=== PATIENT | male | born 1960 | race Caucasian/White ===

== ENCOUNTER 2018-03-24 20:36 | Emergency (ER) | payer SELFPAY ==
[~2018-03-24] VITALS: Ht 177.8 cm; Wt 107.5 kg
[2018-03-24 20:48] VITALS: BP 133/96
[2018-03-24 21:30] LABS: BASOPHILS # (AUTO) 0.07 x10^3/uL (0-0.1); BASOPHILS % (AUTO) 1 % (0-1); EOSINOPHILS # (AUTO) 0.16 x10^3/uL (0-0.4); EOSINOPHILS % (AUTO) 2 % (1-7); LYMPHOCYTES # (AUTO) 3.16 x10^3/uL (1-3.4); LYMPHOCYTES % (AUTO) 36 % (22-44); MD NO; MEAN CORPUSCULAR HEMOGLOBIN 30.7 pg (27.5-34.5); MEAN CORPUSCULAR HGB CONC 34.5 g/dL (33.2-36.2); MEAN CORPUSCULAR VOLUME 89.2 fL (81-97); MONOCYTES # (AUTO) 0.84 x10^3/uL (0.2-0.8); MONOCYTES % (AUTO) 9 % (2-9); NEUTROPHILS # (AUTO) 4.68 x10^3/uL (1.8-6.8); NEUTROPHILS % (AUTO) 53 % (42-75); PLATELET COUNT 248 x10^3/uL (130-400); RED BLOOD COUNT 5.05 x10^6/uL (4.38-5.82); RED CELL DISTRIBUTION WIDTH 13.9 % (9.4-14.8)
[2018-03-24 21:39] LABS: ALANINE AMINOTRANSFERASE 25 U/L (12-78); ALBUMIN 3.7 g/dL (3.4-5.0); ANION GAP 10 mmol/L (5-15); CALCIUM 8.7 mg/dL (8.5-10.1); CHLORIDE 109 mmol/L (98-107); CREATININE 0.96 mg/dL (0.7-1.3)
[2018-03-24 21:43] LABS: ALKALINE PHOSPHATASE 73 U/L (45-117); BILIRUBIN,TOTAL 0.4 mg/dL (0.2-1.0); TOTAL PROTEIN 7.5 g/dL (6.4-8.2); TROPONIN I < 0.015 ng/mL (0.000-0.045)
== END 2018-03-24 22:29 | disposition home or self-care (01) ==
LOC: EDBD 20:36 → ED 22:23
DX: R42 Dizziness and giddiness (principal); J01.00 Acute maxillary sinusitis, unspecified; I10 Essential (primary) hypertension; E78.00 Pure hypercholesterolemia, unspecified; F17.200 Nicotine dependence, unspecified, uncomplicated
CPT/HCPCS: 36415; 71045; 80053; 84484; 85025; 93005; 99285

== ENCOUNTER 2018-10-12 09:28 | Emergency (ER) | payer MEDICAID, OTHER ==
[~2018-10-12] VITALS: Ht 177.8 cm; Wt 107.3 kg
[2018-10-12 09:38] VITALS: BP 122/84
--- NOTE | 2018-10-12 09:44 | NUR ---
Sore throat x 3 days. Painful to swallow, muffled voice, chloraseptic/salt water gargles not helping.
[2018-10-12] MEDS ORDERED: DEXAMETHASONE 4 MG/ML, 1ML ONE (10:23)
[2018-10-12] MEDS ORDERED: DEXAMETHASONE 4 MG/ML, 1ML PO ONE (10:30)
== END 2018-10-12 10:44 | disposition home or self-care (01) ==
LOC: ED 10:35
DX: J02.9 Acute pharyngitis, unspecified (principal); I10 Essential (primary) hypertension; E78.00 Pure hypercholesterolemia, unspecified
CPT/HCPCS: 99283; J1100

== ENCOUNTER 2018-10-14 18:36 | Inpatient (IN) | payer MEDICAID, OTHER ==
[~2018-10-14] VITALS: Ht 177.8 cm; Wt 109.6 kg
[2018-10-14 19:34] LABS: MEAN CORPUSCULAR HEMOGLOBIN 30.1 pg (27.5-34.5); MEAN CORPUSCULAR HGB CONC 33.8 g/dL (33.2-36.2); MEAN CORPUSCULAR VOLUME 89.2 fL (81-97); MEAN PLATELET VOLUME 8.1 fL (7.4-10.4); PLATELET COUNT 289 x10^3/uL (130-400); RED BLOOD COUNT 5.42 x10^6/uL (4.38-5.82); RED CELL DISTRIBUTION WIDTH 13.4 % (9.4-14.8)
[2018-10-14] MEDS ORDERED: BENZOCAINE 20% SPRAY 0.5ML ONE (19:37)
[2018-10-14 19:41] LABS: ANION GAP 6 mmol/L (5-15); CALCIUM 8.5 mg/dL (8.5-10.1); CHLORIDE 108 mmol/L (98-107); CREATININE 0.91 mg/dL (0.7-1.3)
[2018-10-14 19:49] LABS: MD YES
[2018-10-14 19:52] LABS: <PLATELET ESTIMATE> ADEQUATE; <PLT MORPHOLOGY> NORMAL PLT MORPH; <RBC MORPHOLOGY> NORMAL; BAND#(MANUAL) 0.15 x10^3/uL; BANDS%(MANUAL) 1 % (0-7); EOS#(MANUAL) 0.15 x10^3/uL (0.0-0.4); EOS% (MANUAL) 1 % (1-7); LYMPHS% (MANUAL) 20 % (22-44); MONOS#(MANUAL) 1.89 x10^3/uL (0.3-2.7); MONOS% (MANUAL) 13 % (2-9); SEG#(MANUAL) 9.43 x10^3/uL (1.8-6.8); SEGS% (MANUAL) 65 % (42-75)
[2018-10-14] MEDS ORDERED: BENZOCAINE 20% SPRAY 0.5ML TP ONE (20:00)
[2018-10-14] MEDS ORDERED: OMNIPAQUE 350 MG/ML, 100ML BOTTLE ONE (20:06)
--- NOTE | 2018-10-14 21:26 | NUR ---
ENT AT BEDSIDE AT THIS TIME
[2018-10-14] MEDS ORDERED: DEXAMETHASONE 4 MG/ML, 1ML IVPush SCH (22:00)
[2018-10-14] MEDS ORDERED: DEXAMETHASONE 4 MG/ML, 5ML ONE (22:08)
--- NOTE | 2018-10-14 22:12 | NUR ---
WAITING FOR ADMIT BED
[2018-10-14] MEDS ORDERED: RAMI10CA59 PO (22:22)
[2018-10-14] MEDS ORDERED: AMLO5TAB4 PO (22:23)
[2018-10-14] MEDS ORDERED: ATOR40TA78 PO (22:24)
[2018-10-14 22:50] VITALS: BP 115/74
[2018-10-14] MEDS ORDERED: ACETAMINOPHEN 325 MG TABLET PO PRN (23:30)
[2018-10-14] MEDS ORDERED: KETOROLAC 30 MG/1 ML IV PRN (23:30)
[2018-10-14] MEDS ORDERED: ONDANSETRON 2MG/ML, 2ML IVPush PRN (23:30)
[2018-10-14] MEDS ORDERED: ENALAPRILAT 1.25 MG/ML, 2ML IVPush PRN (23:30)
[2018-10-14] MEDS ORDERED: HYDROmorphone 2 MG/ML, 1ML IVPush PRN (23:30)
[2018-10-14] MEDS ORDERED: POLYETHYLENE GLYCOL 17 GM PACKET PO PRN (23:30)
[2018-10-15] MEDS ORDERED: DEXAMETHASONE 10 MG in SODIUM CHLORIDE 0.9% 50 ML IV SCH
[2018-10-15] MEDS: HYDROcodone/APAP 5/325 TABLET PO PRN ×6 (00:01→22:40)
[2018-10-15 01:02] VITALS: BP 110/72
[2018-10-15 05:34] LABS: BASOPHILS % (AUTO) 0 % (0-1); EOSINOPHILS % (AUTO) 0 % (1-7); LYMPHOCYTES # (AUTO) 0.84 x10^3/uL (1-3.4); LYMPHOCYTES % (AUTO) 7 % (22-44); MD NO; MEAN CORPUSCULAR HEMOGLOBIN 29.9 pg (27.5-34.5); MEAN CORPUSCULAR HGB CONC 33.8 g/dL (33.2-36.2); MEAN CORPUSCULAR VOLUME 88.5 fL (81-97); MEAN PLATELET VOLUME 8.6 fL (7.4-10.4); MONOCYTES # (AUTO) 0.62 x10^3/uL (0.2-0.8); MONOCYTES % (AUTO) 5 % (2-9); NEUTROPHILS # (AUTO) 11.17 x10^3/uL (1.8-6.8); NEUTROPHILS % (AUTO) 88 % (42-75); PLATELET COUNT 312 x10^3/uL (130-400); RED BLOOD COUNT 5.15 x10^6/uL (4.38-5.82); RED CELL DISTRIBUTION WIDTH 13.7 % (9.4-14.8)
[2018-10-15 05:43] LABS: ANION GAP 7 mmol/L (5-15); CALCIUM 8.4 mg/dL (8.5-10.1); CHLORIDE 107 mmol/L (98-107); CREATININE 0.93 mg/dL (0.7-1.3)
[2018-10-15] MEDS: DEXAMETHASONE 4 MG/ML, 1ML IVPush SCH ×3 (06:22→22:40)
[2018-10-15 07:28] VITALS: BP 136/81
[2018-10-15] MEDS: AMLODIPINE 5 MG TABLET PO SCH (08:43)
[2018-10-15] MEDS: SENNA/DOCUSATE TABLET PO SCH (08:43)
[2018-10-15] MEDS: CLINDAMYCIN PMX 600MG/50ML 50 ML IV SCH ×2 (08:51)
[2018-10-15] MEDS: RAMIPRIL 5 MG CAP PO SCH (08:58)
[2018-10-15] MEDS: LACTATED RINGERS 1,000 ML IV SCH ×2 (12:59)
[2018-10-15] MEDS: AMPICILLIN/SULBACTAM 3 GM in SODIUM CHLORIDE 0.9% 100 ML IV SCH ×2 (13:29→19:53)
[2018-10-15 14:27] VITALS: BP 91/59
[2018-10-15 19:10] VITALS: BP 112/62
[2018-10-15] MEDS: ATORVASTATIN 40 MG TABLET PO SCH (20:04)
[2018-10-16] MEDS: AMPICILLIN/SULBACTAM 3 GM in SODIUM CHLORIDE 0.9% 100 ML IV SCH ×4 (01:03→20:22)
[2018-10-16] MEDS: LACTATED RINGERS 1,000 ML IV SCH (01:04)
[2018-10-16 01:27] VITALS: BP 100/68
[2018-10-16] MEDS: HYDROcodone/APAP 5/325 TABLET PO PRN ×4 (02:32→22:48)
[2018-10-16] MEDS: DEXAMETHASONE 4 MG/ML, 1ML IVPush SCH ×3 (05:58→22:48)
[2018-10-16 06:00] LABS: ALBUMIN 2.8 g/dL (3.4-5.0); ANION GAP 5 mmol/L (5-15); CALCIUM 8.2 mg/dL (8.5-10.1); CHLORIDE 110 mmol/L (98-107)
[2018-10-16 06:01] LABS: MEAN CORPUSCULAR HEMOGLOBIN 30.2 pg (27.5-34.5); MEAN CORPUSCULAR HGB CONC 34.1 g/dL (33.2-36.2); MEAN CORPUSCULAR VOLUME 88.4 fL (81-97); MEAN PLATELET VOLUME 8.4 fL (7.4-10.4); PLATELET COUNT 294 x10^3/uL (130-400); RED BLOOD COUNT 4.89 x10^6/uL (4.38-5.82); RED CELL DISTRIBUTION WIDTH 13.8 % (9.4-14.8)
[2018-10-16 06:04] LABS: ALANINE AMINOTRANSFERASE 28 U/L (12-78); ALKALINE PHOSPHATASE 78 U/L (45-117); BILIRUBIN,TOTAL 0.4 mg/dL (0.2-1.0); CREATININE 0.77 mg/dL (0.7-1.3); TOTAL PROTEIN 6.4 g/dL (6.4-8.2)
[2018-10-16 06:45] LABS: BASOPHILS # (AUTO) 0.02 x10^3/uL (0-0.1); BASOPHILS % (AUTO) 0 % (0-1); EOSINOPHILS % (AUTO) 0 % (1-7); LYMPHOCYTES # (AUTO) 0.92 x10^3/uL (1-3.4); LYMPHOCYTES % (AUTO) 6 % (22-44); MD SCAN; MONOCYTES % (AUTO) 7 % (2-9); NEUTROPHILS # (AUTO) 14.87 x10^3/uL (1.8-6.8); NEUTROPHILS % (AUTO) 88 % (42-75)
[2018-10-16] MEDS ORDERED: morphine SULFATE 10 MG/ML, 1ML IVPush PRN (08:00)
[2018-10-16] MEDS: RAMIPRIL 5 MG CAP PO SCH ×2 (08:11→08:21)
[2018-10-16] MEDS: AMLODIPINE 5 MG TABLET PO SCH ×2 (08:12→08:21)
[2018-10-16] MEDS: SENNA/DOCUSATE TABLET PO SCH (08:14)
[2018-10-16 08:17] VITALS: BP 116/80
[2018-10-16] MEDS ORDERED: ACETAMINOPHEN 325 MG TABLET PO PRN ×2 (08:30→18:30)
[2018-10-16] MEDS ORDERED: PANTOPRAZOLE 40 MG IV IVPush SCH (09:00)
[2018-10-16] MEDS: D5%-LACTATED RINGERS 1,000 ML IV SCH (11:19)
[2018-10-16 13:39] VITALS: BP 152/76
[2018-10-16] MEDS ORDERED: OXYMETAZOLINE NASAL SPRAY 0.05%, 15ML ONE (17:24)
[2018-10-16] MEDS ORDERED: PROPOFOL 10 MG/ML, 20ML ONE (17:50)
[2018-10-16] MEDS ORDERED: SUCCINYLCHOLINE 20 MG/ML, 10ML ONE (17:50)
[2018-10-16] MEDS ORDERED: ONDANSETRON 2MG/ML, 2ML ONE (17:50)
[2018-10-16] MEDS ORDERED: DEXAMETHASONE 4 MG/ML, 5ML ONE (17:50)
[2018-10-16] MEDS ORDERED: MIDAZOLAM 1 MG/ML, 2ML ONE (17:51)
[2018-10-16] MEDS ORDERED: FENTANYL PF 250 MCG/5ML ONE (17:52)
[2018-10-16] MEDS ORDERED: HALOPERIDOL 5 MG/ML ONE (18:19)
[2018-10-16] MEDS ORDERED: hydrALAzine 20 MG/ML, 1ML IV PRN (18:30)
[2018-10-16] MEDS ORDERED: HYDROmorphone 2 MG/ML, 1ML IVPush PRN (18:30)
[2018-10-16] MEDS ORDERED: HALOPERIDOL 5 MG/ML IV PRN (18:30)
[2018-10-16] MEDS ORDERED: OXYcodone 5 MG/5 ML ORAL.SOL UDC PO PRN (18:30)
[2018-10-16] MEDS ORDERED: PROMETHAZINE 25 MG/ML, 1ML IV PRN (18:30)
[2018-10-16] MEDS ORDERED: MEPERIDINE/PF 25MG/0.5ML IVPush PRN (18:30)
[2018-10-16] MEDS ORDERED: DIAZEPAM 5 MG/ML, 2ML IVPush PRN (18:30)
[2018-10-16] MEDS ORDERED: ALBUTEROL/IPRATROPIUM 2.5MG/0.5MG, 3 ML NPPB PRN (18:30)
[2018-10-16] MEDS ORDERED: ACETAMINOPHEN 650 MG/20.3 ML UDC ONE (18:31)
[2018-10-16] MEDS ORDERED: FENTANYL PF 100 MCG/2ML ONE (18:31)
[2018-10-16] MEDS ORDERED: OXYcodone 5 MG/5 ML ORAL.SOL UDC ONE (18:32)
[2018-10-16] MEDS: FENTANYL PF 100 MCG/2ML IV PRN ×4 (18:36→18:58)
[2018-10-16 19:55] VITALS: BP 101/66
[2018-10-16] MEDS: ATORVASTATIN 40 MG TABLET PO SCH (21:00)
[2018-10-17 00:45] VITALS: BP 118/81
[2018-10-17] MEDS: AMPICILLIN/SULBACTAM 3 GM in SODIUM CHLORIDE 0.9% 100 ML IV SCH (02:17)
[2018-10-17] MEDS: D5%-LACTATED RINGERS 1,000 ML IV SCH (02:17)
[2018-10-17] MEDS: HYDROcodone/APAP 5/325 TABLET PO PRN ×2 (03:16→07:07)
[2018-10-17 05:23] LABS: MEAN CORPUSCULAR HEMOGLOBIN 30.4 pg (27.5-34.5); MEAN CORPUSCULAR HGB CONC 33.8 g/dL (33.2-36.2); MEAN CORPUSCULAR VOLUME 89.8 fL (81-97); MEAN PLATELET VOLUME 8.2 fL (7.4-10.4); PLATELET COUNT 347 x10^3/uL (130-400); RED BLOOD COUNT 5.17 x10^6/uL (4.38-5.82); RED CELL DISTRIBUTION WIDTH 13.9 % (9.4-14.8)
[2018-10-17 05:27] LABS: ALBUMIN 3.2 g/dL (3.4-5.0); ANION GAP 7 mmol/L (5-15); CALCIUM 8.5 mg/dL (8.5-10.1); CHLORIDE 109 mmol/L (98-107)
[2018-10-17 05:31] LABS: ALANINE AMINOTRANSFERASE 37 U/L (12-78); ALKALINE PHOSPHATASE 77 U/L (45-117); BILIRUBIN,TOTAL 0.8 mg/dL (0.2-1.0); CREATININE 0.79 mg/dL (0.7-1.3)
[2018-10-17 05:59] LABS: BASOPHILS # (AUTO) 0.05 x10^3/uL (0-0.1); BASOPHILS % (AUTO) 0 % (0-1); EOSINOPHILS # (AUTO) 0.02 x10^3/uL (0-0.4); EOSINOPHILS % (AUTO) 0 % (1-7); LYMPHOCYTES # (AUTO) 1.03 x10^3/uL (1-3.4); LYMPHOCYTES % (AUTO) 6 % (22-44); MD SCAN; MONOCYTES # (AUTO) 0.84 x10^3/uL (0.2-0.8); MONOCYTES % (AUTO) 5 % (2-9); NEUTROPHILS # (AUTO) 16.34 x10^3/uL (1.8-6.8); NEUTROPHILS % (AUTO) 89 % (42-75)
[2018-10-17] MEDS ORDERED: PANTOPROZOLE 40MG TABLET PO SCH (06:00)
[2018-10-17] MEDS: DEXAMETHASONE 4 MG/ML, 1ML IVPush SCH (06:47)
[2018-10-17 07:00] VITALS: BP_SYST 114; BP_SYST 127; BP_DIAS 72; BP_DIAS 79
[2018-10-17] MEDS ORDERED: ERTAPENEM 1 GM in SODIUM CHLORIDE 0.9% 50 ML IV SCH (08:30)
[2018-10-17] MEDS ORDERED: AMOX1TAB64 PO (08:49)
[2018-10-17] MEDS: AMLODIPINE 5 MG TABLET PO SCH (08:52)
[2018-10-17] MEDS: RAMIPRIL 5 MG CAP PO SCH (08:53)
[2018-10-17] MEDS: SENNA/DOCUSATE TABLET PO SCH (08:54)
== END 2018-10-17 10:10 | disposition home or self-care (01) | DRG 153 ==
LOC: ED 20:33 → EDIP 21:58 → 4NOR 22:40
PROVIDERS: ADMIT Family Medicine; ATTEND Family Medicine
PROC: 0CJS8ZZ Inspection of Larynx, Via Natural or Artificial Opening Endoscopic (ICD-10-PCS; principal; 2018-10-16 17:00)
DX: J39.0 Retropharyngeal and parapharyngeal abscess (principal); E66.9 Obesity, unspecified; Z68.34 Body mass index [BMI] 34.0-34.9, adult; E78.00 Pure hypercholesterolemia, unspecified; E78.5 Hyperlipidemia, unspecified; F17.200 Nicotine dependence, unspecified, uncomplicated; I10 Essential (primary) hypertension; T38.0X5A Adverse effect of glucocorticoids and synthetic analogues, initial encounter; I48.91 Unspecified atrial fibrillation; K21.9 Gastro-esophageal reflux disease without esophagitis; D72.828 Other elevated white blood cell count; Y92.89 Other specified places as the place of occurrence of the external cause
CPT/HCPCS: 36415; 99285; J7121; 70491; 80048; 80053; 82962; 83735; 84100; 85025; 93005; 96374; G0378; J0295; J1100; J1335; J1885; J2250; J2405; J2704; J3010; Q9967; J0330; J7120

== ENCOUNTER 2019-06-23 13:17 | Emergency (ER) | payer MEDICAID ==
[~2019-06-23] VITALS: Ht 177.8 cm; Wt 103.5 kg
[~2019-06-23 13:17] MED LIST: AMLO5TAB4 PO; AMOX1TAB64 PO; ATOR40TA78 PO; RAMI10CA59 PO
--- NOTE | 2019-06-23 13:30 | NUR ---
AT BEDSIDE FOR INITIAL ASSESSMENT. PT PLACED ON ALL MONITORING, [employer] SHOWING RAPID HR 155-175, PT STATES FEELING SOB FOR THE LAST HOUR. IV PLACED, LABS DRAWN, FLUIDS STARTED. AWAITING FURTHER ORDERS AT THIS TIME
[2019-06-23] MEDS ORDERED: SODIUM CHLORIDE 0.9% 1,000 ML IV ONE (13:40)
[2019-06-23] MEDS ORDERED: DILTIAZEM 5 MG/ML, 5ML ONE (13:43)
[2019-06-23] MEDS ORDERED: ASPIRIN 81 MG TABLET CHEW ONE (13:50)
--- NOTE | 2019-06-23 13:55 | NUR ---
Cardizem bolus given, pt hr going from 155-170 down to 85-100. Rhythm continues to be irregular, monitor showing afib. Pt sts breathing is easier at this time. Will continue to monitor
[2019-06-23 13:56] LABS: BASOPHILS # (AUTO) 0.07 x10^3/uL (0-0.1); BASOPHILS % (AUTO) 1 % (0-1); EOSINOPHILS # (AUTO) 0.08 x10^3/uL (0-0.4); EOSINOPHILS % (AUTO) 1 % (1-7); LYMPHOCYTES # (AUTO) 2.15 x10^3/uL (1-3.4); LYMPHOCYTES % (AUTO) 25 % (22-44); MD NO; MEAN CORPUSCULAR HEMOGLOBIN 29.8 pg (27.5-34.5); MEAN CORPUSCULAR HGB CONC 33.2 g/dL (33.2-36.2); MEAN CORPUSCULAR VOLUME 89.7 fL (81-97); MEAN PLATELET VOLUME 8.5 fL (7.4-10.4); MONOCYTES # (AUTO) 1.02 x10^3/uL (0.2-0.8); MONOCYTES % (AUTO) 12 % (2-9); NEUTROPHILS # (AUTO) 5.26 x10^3/uL (1.8-6.8); NEUTROPHILS % (AUTO) 61 % (42-75); PLATELET COUNT 263 x10^3/uL (130-400); RED BLOOD COUNT 6.12 x10^6/uL (4.38-5.82); RED CELL DISTRIBUTION WIDTH 13.6 % (9.4-14.8)
[2019-06-23] MEDS ORDERED: DILTIAZEM 5 MG/ML, 5ML IV ONE (14:00)
[2019-06-23] MEDS ORDERED: SODIUM CHLORIDE FLUSH 10ML SYR IVF ONE (14:00)
[2019-06-23] MEDS ORDERED: ASPIRIN 81 MG TABLET CHEW PO ONE (14:00)
[2019-06-23] MEDS ORDERED: DILTIAZEM 125 MG in SODIUM CHLORIDE 0.9% 100 ML IV SCH (14:00)
[2019-06-23 14:07] LABS: ALBUMIN 4.3 g/dL (3.4-5.0); ANION GAP 5 mmol/L (5-15); CALCIUM 9.7 mg/dL (8.5-10.1); CHLORIDE 110 mmol/L (98-107); CREATININE 1.14 mg/dL (0.7-1.3)
[2019-06-23 14:11] LABS: FREE T4 (FREE THYROXINE) 1.03 ng/dL (0.76-1.46); TROPONIN I < 0.015 ng/mL (0.000-0.045)
--- NOTE | 2019-06-23 14:13 | NUR ---
TECH TO BEDSIDE FOR REPEAT EKG. PT RESTING MORE COMFORTABLY IN BED. DRIP STARTED PER AUG. VSS AT THIS TIME. CALL LIGHT WITHIN REACH
--- NOTE | 2019-06-23 14:23 | NUR ---
ALL RESULTS BACK AT THIS TIME, CHART UP FOR RECHECK
[2019-06-23] MEDS ORDERED: PROPOFOL 10 MG/ML, 20ML ONE (14:47)
--- NOTE | 2019-06-23 14:48 | NUR ---
CONSENT SIGNED FOR CARDIO VERSION. ALL SAFETY IN PLACE. PT UNDERSTANDS PROCEDURE. PROPOFOL PULLED FOR
--- NOTE | 2019-06-23 15:19 | NUR ---
REPORT FROM JUAN ALVAREZ RN, PT TO BE DISCHARGED AFTER OK TO AMBULATE.
--- NOTE | 2019-06-23 15:19 | NUR ---
CARDIOVERSION STARTED UPON RECEIVING SEDATION PT CONVERTED ON HIS OWN, NO SHOCK GIVEN.
--- NOTE | 2019-06-23 15:58 | NUR ---
TECH AT BEDSIDE FOR REPEAT EKG. FAMILY AT BEDSIDE. PT TO BE DCd HOME
[2019-06-23 15:59] VITALS: BP 100/76
[2019-06-23] MEDS ORDERED: PROPOFOL 10 MG/ML, 20ML IV ONE (16:00)
== END 2019-06-23 16:22 | disposition home or self-care (01) ==
LOC: ED 14:30
DX: I48.91 Unspecified atrial fibrillation (principal); R06.00 Dyspnea, unspecified; I10 Essential (primary) hypertension; E78.00 Pure hypercholesterolemia, unspecified
CPT/HCPCS: 36415; 71045; 80048; 82040; 84439; 84443; 84481; 84484; 85025; 93005; 96365; 99291; J7030

== ENCOUNTER 2020-07-18 21:46 | Inpatient (IN) | payer MEDICAID ==
[~2020-07-18] VITALS: Ht 177.8 cm; Wt 110.0 kg
[2020-07-18] MEDS ORDERED: SODIUM CHLORIDE 0.9% 1,000ML IVBOLUS ONE (22:30)
[2020-07-18] MEDS ORDERED: SODIUM CHLORIDE FLUSH 10ML SYR IVF ONE (22:30)
[2020-07-18] MEDS ORDERED: ONDANSETRON 2MG/ML, 2ML IVPush ONE (22:30)
[2020-07-18] MEDS ORDERED: DILTIAZEM 125 MG in SODIUM CHLORIDE 0.9% 100 ML IV SCH (22:30)
[2020-07-18] MEDS ORDERED: HYDROmorphone 2 MG/ML, 1ML IVPush PRN (22:30)
[2020-07-18] MEDS ORDERED: DIAZEPAM 5 MG/ML, 2ML IVPush PRN (22:30)
[2020-07-18] MEDS ORDERED: DILTIAZEM 5 MG/ML, 5ML IV ONE (22:30)
[2020-07-18 22:40] LABS: BASOPHILS % (AUTO) 1 % (0-1); EOSINOPHILS % (AUTO) 3 % (1-7); LYMPHOCYTES % (AUTO) 27 % (22-44); MEAN CORPUSCULAR HEMOGLOBIN 30.9 pg (27.5-34.5); MEAN CORPUSCULAR HGB CONC 34.8 g/dL (33.2-36.2); MEAN PLATELET VOLUME 7.3 fL (7.4-10.4); MONOCYTES % (AUTO) 10 % (2-9); NEUTROPHILS % (AUTO) 60 % (42-75); PLATELET COUNT 281 x10^3/uL (130-400); RED BLOOD COUNT 5.26 x10^6/uL (4.38-5.82); RED CELL DISTRIBUTION WIDTH 14.7 % (9.4-14.8)
[2020-07-18 22:41] LABS: MD NO
[2020-07-18] MEDS ORDERED: DIAZEPAM 5 MG/ML, 2ML ONE (22:49)
[2020-07-18] MEDS ORDERED: HYDROmorphone 1 MG/ML, 1ML INJ ONE (22:49)
[2020-07-18] MEDS ORDERED: ONDANSETRON 2MG/ML, 2ML ONE (22:50)
[2020-07-18] MEDS ORDERED: DILTIAZEM 5 MG/ML, 5ML ONE (22:50)
[2020-07-18 22:51] LABS: ALANINE AMINOTRANSFERASE 34 U/L (12-78); ALBUMIN 3.2 g/dL (3.4-5.0); ANION GAP 5 mmol/L (5-15); CALCIUM 8.9 mg/dL (8.5-10.1); CHLORIDE 107 mmol/L (98-107); CREATININE 1.01 mg/dL (0.7-1.3)
[2020-07-18 22:56] LABS: PROTHROMBIN TIME 12.2 Seconds (9.6-11.5)
[2020-07-18 22:57] LABS: INTERNATIONAL NORMALIZED RATIO 1.14 (0.93-1.1)
[2020-07-18 23:02] LABS: ALKALINE PHOSPHATASE 99 U/L (45-117); BILIRUBIN,TOTAL 0.6 mg/dL (0.2-1.0); T4 (THYROXINE) 11.1 mcg/dL (4.5-12.1); TOTAL PROTEIN 7.5 g/dL (6.4-8.2)
[2020-07-18] MEDS ORDERED: OMNIPAQUE 350 MG/ML, 100ML BOTTLE ONE (23:48)
[2020-07-19 00:11] LABS: MICROSCOPIC INDICATED
[2020-07-19] MEDS ORDERED: DILTIAZEM 125 MG in SODIUM CHLORIDE 0.9% 100 ML IV SCH (01:00)
[2020-07-19] MEDS ORDERED: ACETAMINOPHEN 325 MG TABLET PO PRN (01:00)
[2020-07-19] MEDS ORDERED: MAGNESIUM SULFATE PMX 2GM/50ML 50 ML IV ONE (01:00)
[2020-07-19] MEDS ORDERED: ONDANSETRON ODT 4 MG PO PRN (01:00)
[2020-07-19] MEDS ORDERED: NICOTINE 21 MG/24 HR PATCH.TD24 TD ONE (01:00)
[2020-07-19 02:43] VITALS: BP 128/85
[2020-07-19] MEDS: OXYcodone IR 5MG TABLET PO PRN ×2 (02:48→13:51)
[2020-07-19 05:11] LABS: BASOPHILS % (AUTO) 1 % (0-1); EOSINOPHILS % (AUTO) 4 % (1-7); LYMPHOCYTES % (AUTO) 36 % (22-44); MEAN CORPUSCULAR HEMOGLOBIN 31.3 pg (27.5-34.5); MEAN CORPUSCULAR HGB CONC 34.6 g/dL (33.2-36.2); MEAN PLATELET VOLUME 7.6 fL (7.4-10.4); MONOCYTES % (AUTO) 9 % (2-9); NEUTROPHILS % (AUTO) 51 % (42-75); PLATELET COUNT 265 x10^3/uL (130-400); RED BLOOD COUNT 4.88 x10^6/uL (4.38-5.82); RED CELL DISTRIBUTION WIDTH 14.8 % (9.4-14.8)
[2020-07-19 05:17] LABS: MD NO
[2020-07-19 05:26] LABS: ANION GAP 3 mmol/L (5-15); CALCIUM 8.2 mg/dL (8.5-10.1); CHLORIDE 109 mmol/L (98-107)
[2020-07-19 05:27] LABS: CREATININE 0.94 mg/dL (0.7-1.3)
[2020-07-19] MEDS: AMLODIPINE 5 MG TABLET PO SCH (08:18)
[2020-07-19] MEDS: LORazepam 1MG TABLET PO PRN ×2 (08:18→21:37)
[2020-07-19] MEDS: APIXABAN 5 MG TABLET PO SCH ×2 (08:18→21:37)
[2020-07-19] MEDS: SENNA/DOCUSATE TABLET PO SCH (08:20)
[2020-07-19] MEDS: SODIUM CHLORIDE FLUSH 10ML SYR IVF SCH ×2 (08:29→21:00)
[2020-07-19 08:50] VITALS: BP 120/76
[2020-07-19] MEDS ORDERED: VERAPAMIL 2.5 MG/ML, 4ML IVPush PRN (09:30)
[2020-07-19] MEDS: METOPROLOL TARTRATE 25 MG TAB PO SCH ×2 (10:34→17:39)
[2020-07-19 14:35] VITALS: BP 113/75
[2020-07-19] MEDS ORDERED: MORPHINE SULFATE 4 MG/ML, 1ML IVPush PRN (17:00)
[2020-07-19] MEDS ORDERED: FINA5TAB4 PO (17:46)
[2020-07-19] MEDS ORDERED: METO50TA82 PO (17:46)
[2020-07-19] MEDS ORDERED: TAMS-11 PO (17:46)
[2020-07-19] MEDS ORDERED: APIX5TAB PO (17:46)
[2020-07-19 21:35] VITALS: BP 144/88
[2020-07-19] MEDS: ATORVASTATIN 40 MG TABLET PO SCH (21:37)
[2020-07-20 01:58] VITALS: BP 138/95
[2020-07-20] MEDS: METOPROLOL TARTRATE 25 MG TAB PO SCH ×4 (01:59→20:44)
[2020-07-20] MEDS: POLYETHYLENE GLYCOL 17 GM PACKET PO PRN (03:02)
[2020-07-20] MEDS: APIXABAN 5 MG TABLET PO SCH ×2 (07:40→20:44)
[2020-07-20] MEDS: SENNA/DOCUSATE TABLET PO SCH (07:41)
[2020-07-20] MEDS: OXYcodone IR 5MG TABLET PO PRN (07:41)
[2020-07-20] MEDS: AMLODIPINE 5 MG TABLET PO SCH (07:43)
[2020-07-20] MEDS: SODIUM CHLORIDE FLUSH 10ML SYR IVF SCH ×2 (07:53→20:45)
[2020-07-20] MEDS: LORazepam 1MG TABLET PO PRN ×2 (09:55→20:50)
[2020-07-20 12:29] VITALS: BP 147/99
[2020-07-20] MEDS: BISACODYL 10 MG SUPP PR PRN (18:50)
[2020-07-20 20:30] VITALS: BP 169/107
[2020-07-20] MEDS: ATORVASTATIN 40 MG TABLET PO SCH (20:44)
[2020-07-20] MEDS: SIMETHICONE 80 MG CHEW TAB PO PRN (22:09)
[2020-07-21 07:09] VITALS: BP 159/85
[2020-07-21 07:39] LABS: BASOPHILS % (AUTO) 1 % (0-1); EOSINOPHILS % (AUTO) 3 % (1-7); LYMPHOCYTES % (AUTO) 22 % (22-44); MEAN CORPUSCULAR HEMOGLOBIN 30.7 pg (27.5-34.5); MEAN CORPUSCULAR HGB CONC 34.1 g/dL (33.2-36.2); MEAN PLATELET VOLUME 7.5 fL (7.4-10.4); MONOCYTES % (AUTO) 9 % (2-9); NEUTROPHILS % (AUTO) 65 % (42-75); PLATELET COUNT 307 x10^3/uL (130-400); RED BLOOD COUNT 5.41 x10^6/uL (4.38-5.82); RED CELL DISTRIBUTION WIDTH 14.9 % (9.4-14.8)
[2020-07-21 07:40] LABS: MD NO
[2020-07-21 07:44] LABS: ANION GAP 8 mmol/L (5-15); CALCIUM 8.6 mg/dL (8.5-10.1); CHLORIDE 110 mmol/L (98-107); CREATININE 0.82 mg/dL (0.7-1.3)
[2020-07-21] MEDS: SENNA/DOCUSATE TABLET PO SCH (09:00)
[2020-07-21] MEDS: SODIUM CHLORIDE FLUSH 10ML SYR IVF SCH ×2 (09:00→20:04)
[2020-07-21] MEDS: LORazepam 1MG TABLET PO PRN ×2 (09:33→18:11)
[2020-07-21] MEDS: APIXABAN 5 MG TABLET PO SCH ×2 (09:34→20:03)
[2020-07-21] MEDS: OXYcodone IR 5MG TABLET PO PRN ×2 (09:34→18:12)
[2020-07-21] MEDS: METOPROLOL TARTRATE 25 MG TAB PO SCH (09:34)
[2020-07-21] MEDS: SIMETHICONE 80 MG CHEW TAB PO PRN (09:34)
[2020-07-21] MEDS: POLYETHYLENE GLYCOL 17 GM PACKET PO PRN (14:41)
[2020-07-21] MEDS: BISACODYL 10 MG SUPP PR PRN (14:41)
[2020-07-21 14:55] VITALS: BP 136/94
[2020-07-21] MEDS: METOPROLOL TARTRATE 100 MG TAB PO SCH (18:13)
[2020-07-21 20:00] VITALS: BP 119/73
[2020-07-21] MEDS: ATORVASTATIN 40 MG TABLET PO SCH (20:03)
[2020-07-21] MEDS ORDERED: PINK LADY ENEMA 490 ML BOTTLE PR ONE (20:30)
[2020-07-21] MEDS: LORazepam 2 MG/ML, 1ML IVPush PRN (23:27)
[2020-07-22 01:20] VITALS: BP 125/86
[2020-07-22 05:14] LABS: BASOPHILS % (AUTO) 1 % (0-1); EOSINOPHILS % (AUTO) 3 % (1-7); LYMPHOCYTES % (AUTO) 24 % (22-44); MEAN CORPUSCULAR HEMOGLOBIN 30.7 pg (27.5-34.5); MEAN CORPUSCULAR HGB CONC 34.4 g/dL (33.2-36.2); MEAN PLATELET VOLUME 7.5 fL (7.4-10.4); MONOCYTES % (AUTO) 11 % (2-9); NEUTROPHILS % (AUTO) 61 % (42-75); PLATELET COUNT 289 x10^3/uL (130-400); RED BLOOD COUNT 5.39 x10^6/uL (4.38-5.82)
[2020-07-22 05:15] LABS: MD NO
[2020-07-22 05:18] VITALS: BP 125/85
[2020-07-22] MEDS: METOPROLOL TARTRATE 100 MG TAB PO SCH ×2 (05:19→17:52)
[2020-07-22] MEDS: OXYcodone IR 5MG TABLET PO PRN ×2 (05:20→08:19)
[2020-07-22 05:30] LABS: ANION GAP 9 mmol/L (5-15); CALCIUM 8.5 mg/dL (8.5-10.1); CHLORIDE 110 mmol/L (98-107)
[2020-07-22] MEDS ORDERED: CEFTRIAXONE PMX 1GM/50ML 50 ML IV SCH (06:30)
[2020-07-22] MEDS: LORazepam 2 MG/ML, 1ML IVPush PRN (08:18)
[2020-07-22] MEDS: SENNA/DOCUSATE TABLET PO SCH (08:19)
[2020-07-22] MEDS: SODIUM CHLORIDE FLUSH 10ML SYR IVF SCH (08:19)
[2020-07-22] MEDS: APIXABAN 5 MG TABLET PO SCH (08:24)
[2020-07-22 08:38] VITALS: BP 117/78
[2020-07-22] MEDS ORDERED: DIGOXIN 0.125 MG TABLET PO SCH (10:30)
[2020-07-22 13:07] VITALS: BP 99/70
[2020-07-22] MEDS ORDERED: SIME80TA16 PO (14:03)
[2020-07-22] MEDS ORDERED: POLY17PO5 PO (14:03)
[2020-07-22] MEDS ORDERED: METO-99 PO (14:03)
[2020-07-22] MEDS ORDERED: DIGO125T85 PO (14:03)
[2020-07-22] MEDS ORDERED: DOXY100T PO ×2 (20:09)
[2020-07-24] MEDS ORDERED: CIPR250T27 PO (12:39)
== END 2020-07-22 18:04 | disposition home or self-care (01) | DRG 201 ==
LOC: ED 22:30 → EDIP 07-19 00:53 → 5SO 07-19 02:07
PROVIDERS: ADMIT Internal Medicine; ATTEND Internal Medicine
DX: I48.20 Chronic atrial fibrillation, unspecified (principal); E66.9 Obesity, unspecified; D68.69 Other thrombophilia; E78.5 Hyperlipidemia, unspecified; E83.42 Hypomagnesemia; F11.20 Opioid dependence, uncomplicated; F17.210 Nicotine dependence, cigarettes, uncomplicated; F41.9 Anxiety disorder, unspecified; M54.5 Low back pain; I10 Essential (primary) hypertension; K59.00 Constipation, unspecified; N39.0 Urinary tract infection, site not specified; R17 Unspecified jaundice; Z82.3 Family history of stroke; Z99.3 Dependence on wheelchair
CPT/HCPCS: 36415; 74177; 80048; 80053; 81001; 83690; 83735; 84436; 84439; 84443; 85025; 85610; 85730; 87077; 87086; 87186; 93005; 93306; 96374; 96375; 99285; G0378; J0696; J1170; J2405; J3360; Q9967; J2060; J2270; J3475; J7030